=== PATIENT | female | born 1945 | race Caucasian/White ===

== ENCOUNTER 2016-10-30 20:21 | Emergency (ER) | payer MEDICARE ==
[~2016-10-30] VITALS: Ht 149.9 cm; Wt 72.0 kg
[~2016-10-30 20:21] MED LIST: ASPI81TA9 PO; DOCU-27 PO; LORA10TA68 PO; POLY17PO5 PO; RANI150C PO; SIMV40TA3 PO; URSODIOL
[2016-10-30] MEDS ORDERED: ONDANSETRON PF 4 MG/2 ML VIAL. ONE (20:36)
[2016-10-30] MEDS ORDERED: ONDANSETRON PF 4 MG/2 ML VIAL. IV ONE (21:00)
--- NOTE | 2016-10-30 21:13 | PHYS DOC ---
General Chief Complaint: ABDOMINAL PAIN Stated Complaint: POSSIBLE GALL BLADDER ATTACK Time Seen by MD: 21:07 Source: patient, other Problems: History of Present Illness Initial Comments Patient with friend, whom she says has power of farm equipment operator, for vomiting. Patient states she began having abdominal pain earlier today. She notes that some the left or quadrant of the abdomen, but says it's like gallbladder pain she had when she was admitted to the hospital several weeks ago. She says her pain started about 5:00 this evening. He is actually somewhat better now than before. She also had 2 episodes of emesis, once at home and once here. There's been no blood or bilious material noted. She's had no fever or chills with this. There is no runny nose or sore throat. There is no chest pain or shortness of breath. As noted, she says her abdominal pain is now improved. Patient does have a colostomy in place in left lower quadrant following rectal cancer about 9 years ago. She doesn't know if the output is better or worse today than normal. There's been no blood in the output. No change in bladder habits. There is no focal extremity or neurologic complaints. Patient's done nothing for this at home and notes no factors that increase or decrease her symptoms. She indicates that she was admitted to the hospital about 3 weeks ago for this pain, was told she had a bowel obstruction, but doesn't know if he did about it. She says she was told that her pain was due to a gallbladder attack. At time of physician evaluation, she is are received some antiemetics and states that she feels significant better. Patient's past [employer] as work for rectal cancer with colostomy as previously described. She has COPD as well. She is a nonsmoker and nonuser of ethanol. Allergies: Coded Allergies: diphenhydramine (Verified Allergy, Severe, fast heart rate, 09/10/15) Past Medical History Medical History: cancer, COPD Surgical History: other Social History Smoker: non-smoker Alcohol: none Review of Systems All Other Systems: Reviewed and Negative Physical Exam General Appearance: WD/WN, no apparent distress Ear, Nose, Throat: normal ENT inspection, normal pharynx Neck: full range of motion, supple, normal inspection Respiratory: lungs clear, normal breath sounds, no respiratory distress Cardiovascular: regular rate, rhythm, no edema Gastrointestinal: non tender, soft, no organomegaly, other Back: no CVA tenderness, no vertebral tenderness Extremities: non-tender, normal inspection, no pedal edema Neurologic/Psychiatric: alert, normal mood/affect, oriented x 3 Skin: normal color Lymphatic: no adenopathy Comments Generally this is a well-developed well-nourished white female in no acute distress. Vitals are as noted. She does have a strange of scant emesis in the room. Pertinent findings on physical exam shows the chest to be clear. Cardiac exam shows regular rate and rhythm without murmur. Patient has a colostomy noted in the left midabdominal region. There is no masses, organomegaly,. No findings. There is only minimal tenderness in the left lower quadrant area. Back shows no CVA tenderness. Externally show no rash cyanosis or edema. Patient awake alert and oriented. Remainder of physical exam is clinically unremarkable. Orders, Labs, Meds Old charts note a prior hospital admission in September of last year for chest pain. She was actually seen here earlier this month for abdominal pain. She has CT scan that showed evidence of cholelithiasis, also multiple abdominal wall hernias and small bowel obstruction. She was subsequently transferred to [place]. Labs today show white count of 9.6 with normal differential. Liver function tests are globally moderately elevated compared with baseline. Urinalysis is pending. Abdominal flat and upright films show no acute changes per the emergency physician. There suboptimal films. CT scan of the abdomen and pelvis shows multiple dilated loops of small bowel with likely small bowel obstruction as well as to anterior abdominal wall hernias on the left side. Transition point the obstruction appears to be a more the bowel loops extending from the inferior abdominal wall hernia. Cholelithiasis and a mildly day dilated pancreatic duct are noted which are similar to previous studies. There is also some atelectasis in the base per radiology. 0045 Patient resting more comfortably in the ED. I originally discussed the possibility early CT scanning with the patient. She stated that she couldn't do a CT scan because she was claustrophobic and would have a heart attack. I did remind her that a CT scan is certainly not an enclosed MRI, but she insists that she knew the difference and did not want to have the CT scan unless she was totally "knocked out." As a result, obtained initial abdominal films to see if I could see any obvious obstruction. These were nondiagnostic and I discussed with the patient and her friend again the need for CT scanning. At this point, she received fentanyl and Ativan, and felt like she was calm enough to undergo the scan with results as above. I discussed the results of the scan with the patient and her friend. We discussed that while she does have gallstones, I really don't think that was causing her symptoms. I really think this is related to small L obstruction related to abdominal wall hernias. Unfortunate, this is likely the patient will be able to keep here because of the possible need for surgical intervention, the last time and apparently resolved on its own. Patient and her friend are agreeable to transfer to [place] as needed. I discussed the case with Dr. Bustos of the hospitalist service who would like the patient transferred to [place] or she might receive surgical care as needed. I subs going discussed the case with Dr. Dumont of general surgery, would be happy to consult in the morning but suggest the patient be admitted to the hospitalist service. I discussed the case with Dr. Cole of the hospitalist service who graciously agrees to accept the patient for admission. She is resting comfortably at this time awaiting transfer to [place] and definitive care. SHARMILA FORRESTER MD Oct 30, 2016 21:13
[2016-10-30 21:30] LABS: BASO # 0.1 x10^3/uL (0.0-0.2); BASO % 1 % (0-3); EOS # 0.2 x10^3/uL (0.0-0.7); EOS % 2 % (0-3); HEMATOCRIT 41.8 % (36.0-47.0); HEMOGLOBIN 14.1 g/dL (12.0-15.5); LYMPH # 0.9 x10^3/uL (1.0-4.8); LYMPH % 9 % (24-48); MEAN CORPUSCULAR HEMOGLOBIN 31 pg (25-35); MEAN CORPUSCULAR HGB CONC 34 g/dL (31-37); MEAN CORPUSCULAR VOLUME 92 fL (79-100); MONO # 0.6 x10^3/uL (0.0-1.1); MONO % 6 % (0-9); NEUT # 7.9 x10^3uL (1.8-7.7); NEUT % 82 % (31-73); PLATELET COUNT 277 x10^3/uL (140-400); RED BLOOD COUNT 4.52 x10^6/uL (3.50-5.40); WHITE BLOOD COUNT 9.6 x10^3/uL (4.0-11.0)
[2016-10-30] MEDS ORDERED: IV NORMAL SALINE 1,000ML 1,000 ML IV ONE (21:30)
[2016-10-30 21:34] LABS: ALBUMIN 3.8 g/dL (3.4-5.0); ALBUMIN/GLOBULIN RATIO 0.8 (1.0-1.7); CALCIUM 10.1 mg/dL (8.5-10.1); CREATININE 0.7 mg/dL (0.6-1.0); POTASSIUM 3.6 mmol/L (3.5-5.1); TOTAL BILIRUBIN 1.3 mg/dL (0.2-1.0); TOTAL PROTEIN 8.3 g/dL (6.4-8.2)
[2016-10-30] MEDS ORDERED: FENTANYL PF 100 MCG/2 ML VIAL. IV ONE ×2 (22:15→23:30)
[2016-10-30] MEDS ORDERED: LORAZEPAM 2 MG/ML VIAL IV ONE (23:30)
--- NOTE | 2016-10-31 00:26 | RAD ---
Examination: CT of the abdomen pelvis without contrast History: History of abdominal pain, vomiting. COMPARISON 10/04/2016. TECHNIQUE Axial CT images of the abdomen pelvis were performed without contrast. Coronal sagittal reformats were performed Exposure: One or more of the following dose reduction technique were utilized for this examination: 1. Automated exposure control. 2.Adjustment of MA and /or KV according to patient size. 3. Use of iterative reconstruction technique. Findings: Patchy bibasilar lung airspace opacities likely atelectasis or infiltrates. No evidence of free air identified in the abdomen. The visualized liver, spleen, adrenals grossly appears unremarkable. Multiple gallstones identified within the gallbladder. The pancreatic duct is mildly prominent similar to prior exam. No evidence of intrarenal collecting system calculi identified in the bilateral kidneys. The stomach is mildly distended with fluid. There are multiple dilated loops of small bowel identified in the abdomen suggestive of small bowel obstruction. A dilated loop of a small bowel extends into the inferior left lower quadrant anterior abdominal wall hernia with a likely transition point for small bowel obstruction as the loop exiting from the abdominal wall hernia is nondilated suggestive of a transition point. This is similar to prior exam. In addition there appears to be another site of transition for small bowel obstruction best seen on the series 2 image 62 in the right mid abdomen. There are 2 moderate size anterior abdominal wall hernias identified on the left with the superior abdominal wall hernia ofdemonstrates a loops of large bowel without obstruction with changes of ostomy. The inferior abdominal wall hernia on the left, demonstrates loops of large bowel and dilated small bowel loops as described above. There is small umbilical hernia containing a knuckle of large bowel. There is a fat and omentum containing small and anterior abdominal wall hernia on the right. Feces and gas noted throughout the colon.Urinary bladder is moderately distended. Moderate degenerative changes identified in the visualized thoracolumbar spine with minimal anterior listhesis of L4 on L5. IMPRESSION - Multiple dilated loops of small bowel identified likely small bowel obstruction. 2 anterior abdominal wall hernias identified on the left. The superior hernia demonstrates nondilated bowel loops with a ostomy. The inferior left anterior abdominal wall hernia demonstrates several loops of large bowel and dilated loops of small bowel. There appears to be a transition point in one of the bowel loops extending from the inferior abdomen wall hernia. There appears to be another site of transition for small bowel obstruction in the right mid abdomen best visualized on series 2 image #60. - Gallstones within the gallbladder. - Mild dilated pancreatic duct similar to prior exam. - Patchy bibasilar lung airspace opacity likely atelectasis or infiltrates. Electronically signed by: Triston Carr (Oct 31, 2016 00:24:34)
[2016-10-31 01:40] VITALS: BP 146/71
--- NOTE | 2016-10-31 09:42 | RAD ---
Portable abdomen, 2 views, 10/30/2016: History: Vomiting Gas is present in large and small bowel in a nonspecific pattern. No free air is seen in the abdomen. There is no evidence of organomegaly. Multiple rim-like radiopacities projected over the right upper quadrant are compatible with gallstones. Mild scattered vascular calcifications are evident. There are mild degenerative changes in the spine. IMPRESSION: 1. No acute abdominal abnormality is detected. 2. Cholelithiasis.
== END 2016-10-31 01:50 | disposition short-term general hospital (02) ==
LOC: ER 20:21
DX: R10.32 Left lower quadrant pain (principal); R11.10 Vomiting, unspecified; K80.20 Calculus of gallbladder without cholecystitis without obstruction; J44.9 Chronic obstructive pulmonary disease, unspecified; Z93.3 Colostomy status; Z88.8 Allergy status to other drugs, medicaments and biological substances
CPT/HCPCS: 36415; 74020; 74176; 80053; 82010; 85027; 96361; 96374; 96375; 96376; 99285; J2060; J2405; J3010; J7030

== ENCOUNTER → 2020-01-20 | Outpatient (CLI) | payer MEDICARE ==
[~2020-01-20] MED LIST changes: +ASPI-889 PO; -ASPI81TA9 PO; +BUDE0.25 NEB; +DOCU-109 PO; -DOCU-27 PO; +IPRA0.2S5 NEB; +MILK175T2 PO; +MULT-245 PO; +OMEG1CAP65 PO; +OMEP20CA16 PO; +SIMV40TA18 PO; -SIMV40TA3 PO; +URSO500T3 PO
== END | disposition home or self-care (01) ==
LOC: LAB 09:45
PROVIDERS: ATTEND Registered Nurse
DX: Z11.59 Encounter for screening for other viral diseases (principal)
CPT/HCPCS: U0003-CS

== ENCOUNTER → 2020-01-24 | Day surgery (SDC) | payer MEDICARE ==
[~2020-01-24] MED LIST changes: +ASPI-612 PO; -ASPI-889 PO; +BALANCED SALT IRRIG OPHTH SOLN 15 ML BOTTLE. IRR ONE; -BUDE0.25 NEB; +CATARACT OPHTH GEL 0.5 ML SYRINGE. OS ONE; +CHONDROIT-SOD-HYALURONATE KIT. OS ONE; +EPINEPHrine AMPULE 0.5 MG in BALANCED SALT IRRIG SOLN PLUS 500 ML IO ONE; +ERYTHROMYCIN 0.5% OPHTH OINTMENT 1GM TUBE. OS ONE; +HYALURONIDASE 75UNITS in LIDOCAINE 2% PF OPHTH 10 ML SYRINGE. OS ONE; -IPRA0.2S5 NEB; +IPRATRPIUM/ALBUTEROL 0.5/2.5MG 3 ML NEBU. NEB PRN; +IV RINGERS SOLUTION,LACTATED 1,000 ML IV SCH; +KETOROLAC TROMETHAMINE 0.5% OPHTH SOLUTION BOTTLE. ONE; +KETOROLAC TROMETHAMINE 0.5% OPHTH SOLUTION BOTTLE. OS SCH; +MOXIFLOXACIN 0.5% OPHTH SOLUTION 3ML BOTTLE. OS SCH; +ONDANSETRON PF 4 MG/2 ML VIAL. IV PRN; +POVIDONE-IODINE 5% OPHTH SOLUTION 30ML BOTTLE. OS ONE; +PROPOFOL 10,000 MCG/ML (20ML) VIAL IV ONE; +TETRACAINE 0.5% OPHTH SOLUTION 4ML BOTTLE. OS ONE; +TETRACAINE 0.5% OPHTH SOLUTION 4ML BOTTLE. OU ONE; +prednisoLONE ACETATE 1% OPHTH SUSPENSION 5ML BOTTLE. ONE; +prednisoLONE ACETATE 1% OPHTH SUSPENSION 5ML BOTTLE. OS SCH
[2020-01-24] MEDS: MOXIFLOXACIN 0.5% OPHTH SOLUTION 3ML BOTTLE. OS SCH ×3 (09:48→09:56)
--- NOTE | 2020-01-24 10:43 | PDOC4 ---
Phaco IOL/Cataract/OS Date of Procedure: Jan 24, 2020 Preoperative Diagnosis: Senile Cataract, Left Eye Postoperative Diagnosis: Senile Cataract, Left Eye Anesthesia: Local (Block) with monitored anesthesia care Surgeon: Nestor Pacheco D.O. Procedure: Left Phacoemulsification with Intraocular Lens Implant Findings: Senile Cataract Indications: Worsening vision interfering with patient's lifestyle Narrative: After discussing the risks, complications and alternatives, including but not limited to loss of vision, infection, bleeding, swelling, anesthetic reaction, capsule rupture with vitreous loss, etc., the patient was given a peribulbar block under mild IV sedation and cardiac monitoring. Pressure was applied to the eye for approximately 10 minutes. The patient was transferred to the main operating room and was prepped and draped in the usual sterile fashion and positioned under the microscope. A lid speculum was placed. A temporal clear corneal incision was made with a keratome and viscoelastic was injected into the eye. A side port incision was made. A continuous tear capsulorrhexis was performed, then hydrodissection was accomplished with balanced salt solution. The phacoemulsification needle was placed in the eye and the nucleus was emulsified. The remaining cortical material was removed with the irrigation and aspiration apparatus. The capsule was polished as needed. The posterior capsule was noted to be clean and intact. Viscoelastic was injected into the eye inflating the capsular bag. An intraocular lens was injected into the eye, unfolding as desired and was positioned in the capsular bag. The viscoelastic was aspirated from the eye. The wound edges were hydrated with balanced salt solution and there were no leaks. Viscoelastic was injected over the limbal incisions. Antibiotic and steroid were placed on the eye. The lid speculum was removed, the eye patched shut and a Mills shield applied. There were no complications and the patient was taken to the PACU in good condition. NESTOR PACHECO DO Jan 24, 2020 10:43
[2020-01-24 11:00] VITALS: BP 181/68
== END | disposition home or self-care (01) ==
LOC: SURG 09:00
PROVIDERS: ATTEND Ophthalmology
DX: H25.89 Other age-related cataract (principal); K21.9 Gastro-esophageal reflux disease without esophagitis; J44.9 Chronic obstructive pulmonary disease, unspecified; E66.9 Obesity, unspecified; Z68.38 Body mass index [BMI] 38.0-38.9, adult; Z79.82 Long term (current) use of aspirin; Z79.899 Other long term (current) drug therapy
CPT/HCPCS: 66984; J0171; J2704; V2632

== ENCOUNTER → 2020-02-17 | Outpatient (CLI) | payer MEDICARE ==
[2020-01-24 11:00] VITALS: BP 181/68
[~2020-02-17] MED LIST changes: -ASPI-612 PO; +ASPI-889 PO; -BALANCED SALT IRRIG OPHTH SOLN 15 ML BOTTLE. IRR ONE; +BUDE0.25 NEB; -CATARACT OPHTH GEL 0.5 ML SYRINGE. OS ONE; -CHONDROIT-SOD-HYALURONATE KIT. OS ONE; -EPINEPHrine AMPULE 0.5 MG in BALANCED SALT IRRIG SOLN PLUS 500 ML IO ONE; -ERYTHROMYCIN 0.5% OPHTH OINTMENT 1GM TUBE. OS ONE; -HYALURONIDASE 75UNITS in LIDOCAINE 2% PF OPHTH 10 ML SYRINGE. OS ONE; +IPRA0.2S5 NEB; -IPRATRPIUM/ALBUTEROL 0.5/2.5MG 3 ML NEBU. NEB PRN; -IV RINGERS SOLUTION,LACTATED 1,000 ML IV SCH; -KETOROLAC TROMETHAMINE 0.5% OPHTH SOLUTION BOTTLE. ONE; -KETOROLAC TROMETHAMINE 0.5% OPHTH SOLUTION BOTTLE. OS SCH; -MOXIFLOXACIN 0.5% OPHTH SOLUTION 3ML BOTTLE. OS SCH; -ONDANSETRON PF 4 MG/2 ML VIAL. IV PRN; -POVIDONE-IODINE 5% OPHTH SOLUTION 30ML BOTTLE. OS ONE; -PROPOFOL 10,000 MCG/ML (20ML) VIAL IV ONE; -TETRACAINE 0.5% OPHTH SOLUTION 4ML BOTTLE. OS ONE; -TETRACAINE 0.5% OPHTH SOLUTION 4ML BOTTLE. OU ONE; -prednisoLONE ACETATE 1% OPHTH SUSPENSION 5ML BOTTLE. ONE; -prednisoLONE ACETATE 1% OPHTH SUSPENSION 5ML BOTTLE. OS SCH
== END | disposition home or self-care (01) ==
LOC: LAB 09:00
PROVIDERS: ATTEND Nurse Anesthetist, Certified Registered
DX: Z01.818 Encounter for other preprocedural examination (principal); Z11.59 Encounter for screening for other viral diseases; H26.8 Other specified cataract
CPT/HCPCS: C9803; U0003; 36415

== ENCOUNTER → 2020-02-21 | Day surgery (SDC) | payer MEDICARE ==
[~2020-02-21] MED LIST changes: +BALANCED SALT IRRIG OPHTH SOLN 15 ML BOTTLE. IRR ONE; +CATARACT OPHTH GEL 0.5 ML SYRINGE. OD ONE; +CHONDROIT-SOD-HYALURONATE KIT. OD ONE; +EPINEPHrine AMPULE 0.5 MG in BALANCED SALT IRRIG SOLN PLUS 500 ML IO ONE; +ERYTHROMYCIN 0.5% OPHTH OINTMENT 1GM TUBE. OD ONE; +HYALURONIDASE 75UNITS in LIDOCAINE 2% PF OPHTH 10 ML SYRINGE. OD ONE; +IPRATRPIUM/ALBUTEROL 0.5/2.5MG 3 ML NEBU. NEB PRN; +IV RINGERS SOLUTION,LACTATED 1,000 ML IV SCH; +KETOROLAC TROMETHAMINE 0.5% OPHTH SOLUTION BOTTLE. OD SCH; +KETOROLAC TROMETHAMINE 0.5% OPHTH SOLUTION BOTTLE. ONE; +MIDAZOLAM HCL PF 2 MG/2 ML VIAL. IV ONE; +MOXIFLOXACIN 0.5% OPHTH SOLUTION 3ML BOTTLE. OD SCH; +ONDANSETRON PF 4 MG/2 ML VIAL. IV PRN; +POVIDONE-IODINE 5% OPHTH SOLUTION 30ML BOTTLE. OD ONE; +TETRACAINE 0.5% OPHTH SOLUTION 4ML BOTTLE. OD ONE; +TETRACAINE 0.5% OPHTH SOLUTION 4ML BOTTLE. OU ONE; +prednisoLONE ACETATE 1% OPHTH SUSPENSION 5ML BOTTLE. OD SCH; +prednisoLONE ACETATE 1% OPHTH SUSPENSION 5ML BOTTLE. ONE
[2020-02-21] MEDS: MOXIFLOXACIN 0.5% OPHTH SOLUTION 3ML BOTTLE. OD SCH ×3 (10:23→10:33)
--- NOTE | 2020-02-21 11:09 | PDOC4 ---
Phaco IOL/Cataract/OD Date of Procedure: Feb 21, 2020 Preoperative Diagnosis: Preoperative Diagnosis: Senile Cataract, Right Eye Postoperative Diagnosis: Senile Cataract, Right Eye Anesthesia: Local with monitored anesthesia care Surgeon: Nestor Pacheco D.O. Procedure: Right Phacoemulsification with Intraocular Lens Implant Findings: Senile Cataract Indications: Worsening vision interfering with patient's lifestyle Narrative: After discussing the risks, complications and alternatives, including but not limited to loss of vision, infection, bleeding, swelling, anesthetic reaction, capsule rupture with vitreous loss, etc., the patient was given a peribulbar block under mild IV sedation and cardiac monitoring. Pressure was applied to the eye for approximately 10 minutes. The patient was transferred to the main operating room and was prepped and draped in the usual sterile fashion and positioned under the microscope. A lid speculum was placed. A temporal clear corneal incision was made with a keratome and viscoelastic was injected into the eye. A side port incision was made. A continuous tear capsulorrhexis was performed, then hydrodissection was accomplished with balanced salt solution. The phacoemulsification needle was placed in the eye and the nucleus was emulsified. The remaining cortical material was removed with the irrigation and aspiration apparatus. The capsule was polished as needed. The posterior capsule was noted to be clean and intact. Viscoelastic was injected into the eye inflating the capsular bag. An intraocular lens was injected into the eye, unfolding as desired and was positioned in the capsular bag. The viscoelastic was aspirated from the eye. The wound edges were hydrated with balanced salt solution and there were no leaks. Viscoelastic was injected over the limbal incisions. Antibiotic and steroid were placed on the eye. The lid speculum was removed, the eye patched shut and a Mills shield applied. There were no complications and the patient was taken to the PACU in good condition. NESTOR PACHECO DO Feb 21, 2020 11:08
[2020-02-21 11:30] VITALS: BP 158/69
== END ==
LOC: SURG 09:01
PROVIDERS: ATTEND Ophthalmology
DX: H25.12 Age-related nuclear cataract, left eye (principal); K21.9 Gastro-esophageal reflux disease without esophagitis; J44.9 Chronic obstructive pulmonary disease, unspecified; E66.9 Obesity, unspecified; Z68.30 Body mass index [BMI] 30.0-30.9, adult; Z87.891 Personal history of nicotine dependence
CPT/HCPCS: 66984; J0171; V2632

== ENCOUNTER 2020-09-06 21:46 | Emergency (ER) | payer MEDICARE ==
[~2020-09-06] VITALS: Ht 149.9 cm; Wt 72.0 kg
[~2020-09-06 21:46] MED LIST changes: -BALANCED SALT IRRIG OPHTH SOLN 15 ML BOTTLE. IRR ONE; -CATARACT OPHTH GEL 0.5 ML SYRINGE. OD ONE; -CHONDROIT-SOD-HYALURONATE KIT. OD ONE; -EPINEPHrine AMPULE 0.5 MG in BALANCED SALT IRRIG SOLN PLUS 500 ML IO ONE; -ERYTHROMYCIN 0.5% OPHTH OINTMENT 1GM TUBE. OD ONE; -HYALURONIDASE 75UNITS in LIDOCAINE 2% PF OPHTH 10 ML SYRINGE. OD ONE; -IPRATRPIUM/ALBUTEROL 0.5/2.5MG 3 ML NEBU. NEB PRN; -IV RINGERS SOLUTION,LACTATED 1,000 ML IV SCH; -KETOROLAC TROMETHAMINE 0.5% OPHTH SOLUTION BOTTLE. OD SCH; -KETOROLAC TROMETHAMINE 0.5% OPHTH SOLUTION BOTTLE. ONE; -MIDAZOLAM HCL PF 2 MG/2 ML VIAL. IV ONE; -MOXIFLOXACIN 0.5% OPHTH SOLUTION 3ML BOTTLE. OD SCH; -ONDANSETRON PF 4 MG/2 ML VIAL. IV PRN; -POVIDONE-IODINE 5% OPHTH SOLUTION 30ML BOTTLE. OD ONE; -TETRACAINE 0.5% OPHTH SOLUTION 4ML BOTTLE. OD ONE; -TETRACAINE 0.5% OPHTH SOLUTION 4ML BOTTLE. OU ONE; -prednisoLONE ACETATE 1% OPHTH SUSPENSION 5ML BOTTLE. OD SCH; -prednisoLONE ACETATE 1% OPHTH SUSPENSION 5ML BOTTLE. ONE
--- NOTE | 2020-09-06 22:20 | PHYS DOC ---
Past History Past Medical History: Anxiety, Arthritis, Cancer, COPD, Gallstones, GERD, High Cholesterol, Hepatitis, Other Past Surgical History: Cancer Surgery, Other Past Surgical History bowel resection anal cancer- 2008, post radiation and chemo., Rectosigmoidectomy and colostomy. Alcohol Use: None Drug Use: None General Adult EDM: Chief Complaint: NAUSEA/VOMITING/DIARRHEA HPI: HPI: ".. I been vomiting all day.. I tried to eat a muffin.. and some water earlier.. but I just vomited it up.. I get these bowel obstruction.. from my previous surgeries.. they usual try to just wait it out..." Patient is a 75 year old female who presents with above hx and complaints of nausea and vomiting. Patient also has some upper sternal chest pain. Patient has history of colon and rectal cancer which resulted in a recent section of colon in 2007. Has had intermittent episodes of ileus felt to be due to scarring and adhesions caused by surgery, radiation and chemotherapy. Patient does have stool in her colostomy bag. Patient denies any intake of bad food. No recent travel. No significant ill contacts. No current fever or chills. Patient advises because of her past surgery she has been told she is not a candidate for further surgery if her periodic ileus can resolve with watchful waiting, NG placement and hydration. Patient has history of chronic obstructive pulmonary disease, hyperlipidemia, rectal cancer, GERD, hepatitis B, gallstones, anxiety, DJD, hx interment GI bowel obstruction/ileus. Patient no longer smokes or uses alcohol. Does have a significant past tobacco use history excessive 2 packs a day for 45 years. She is retired from the [employer]. The patient follows with Dr. Shea as primary. Review of Systems: Review of Systems: Constitutional: Denies fever or chills Eyes: Denies change in visual acuity HENT: Denies nasal congestion or sore throat Respiratory: Denies cough or shortness of breath Cardiovascular: Complains of chest pain GI: Complains of of generalized abdominal pain, nausea, vomiting,. Denies bloo dy stools or diarrhea : Denies dysuria Musculoskeletal: Denies back pain or joint pain Integument: Denies rash Neurologic: Denies headache, focal weakness or sensory changes Endocrine: Denies polyuria or polydipsia Lymphatic: Denies swollen glands Psychiatric: Denies depression or anxiety Family History: Family History: She has 1 younger brother who is healthy. Father age 65 from heart failure and end-stage renal. Mother at age 95 because of stroke. Current Medications: Current Meds: See nursing for home meds Allergies: Allergies: Allergies Coded Allergies Type Severity Reaction Last Updated Verified diphenhydramine Allergy Severe fast heart rate 01/24/20 Yes Physical Exam: PE: Constitutional: in acute distress, non-toxic appearance. [] HENT: Normocephalic, atraumatic, bilateral external ears normal, oropharynx dry, no oral exudates, nose normal. [] Eyes: PERRLA, EOMI, conjunctiva normal, no discharge. [] Neck: Normal range of motion, no tenderness, supple, no stridor. [] Cardiovascular: Tachycardia heart rate regular rhythm, no murmur PMI to the left Lungs & Thorax: Bilateral breath sounds equal apex with scattered wheezes on auscultation [] Abdomen: Bowel sounds hyperactive, soft, generalized tenderness, no masses, no pulsatile masses. Old surgical scars. Colostomy has stool in it with no obvious bleeding. Having episodes of dry heaving. The vomitus appears to be g astric material with no obvious blood in it. Skin: Warm, dry, no erythema, no rash. Poor turgor Back: No tenderness, no CVA tenderness. [] Extremities: No tenderness, no cyanosis, no clubbing, ROM intact, no edema. Arthritic changes. No psoas sign. Neurologic: Alert and oriented X 3, moves all extremities on request, has distal sensory,, no focal deficits noted. [] Psychologic: Affect anxious, judgement normal, mood normal. [] Current Patient Data: Vital Signs: Vital Signs Date Time Temp Pulse Resp B/P (MAP) Pulse Ox O2 Delivery O2 Flow Rate FiO2 09/06/20 21:49 98.4 85 16 204/105 (138) 97 Room Air EKG: EKG: My interpretation EKG shows a sinus rhythm at 99 bpm. No acute morphology [] Radiology/Procedures: Radiology/Procedures: [][address] [address] IMAGING REPORT Signed PATIENT: MIMI ROGERS BACCOUNT: [id number] : 1945 LOCATION: ER AGE: 75 SEX: F EXAM STATUS: PRE ER ORD. PHYSICIAN: TERRANCE ZAMARRIPA MD REASON: Abd pain, nausea. Hx: Bowel resection, anal cancer, colostomy PROCEDURE: ACUTE ABDOMEN SERIES INDICATION: Reason: Abd pain, nausea. Hx: Bowel resection, anal cancer, colostomy / Spl. Instructions: / History: COMPARISON: October 2016 IMPRESSION: 3 views of the chest and abdomen obtained. Degenerative changes of the spine. Calcific atherosclerosis. No definite focal airspace consolidation or pulmonary edema. Calcifications right upper quadrant the abdomen could be from gallstones. Degenerative changes of the hips. Air scattered throughout large and small bowel in a nonspecific but not grossly obstructive pattern. Electronically signed by: Elaine Torres MD (09/06/2020 11:32 PM) [id number] DICTATED AND SIGNED BY: ELAINE TORRES MD DATE: 09/06/202329 CC: TERRANCE ZAMARRIPA MD; DOMINIQUE SHEA MD ~MTH0 0 Heart Score: HEART Score for Chest Pain: HEART Score for Chest Pain Response (Comments) Value History Slighlty/Non-Suspicious 0 ECG Normal 0 Age > 65 2 Risk Factors 1 or 2 Risk Factors 1 Troponin < Normal Limit 0 Total 3 Risk Factors: Risk Factors: DM, Current or recent (<one month) smoker, HTN, HLP, family history of CAD, obesity. Risk Scores: Score 0 - 3: 2.5% MACE over next 6 weeks - Discharge Home Score 4 - 6: 20.3% MACE over next 6 weeks - Admit for Clinical Observation Score 7 - 10: 72.7% MACE over next 6 weeks - Early Invasive Strategies Course & Med Decision Making: Course & Med Decision Making Pertinent Labs and Imaging studies reviewed. (See chart for details) During ED stay patient received IV fluids, Zofran and Pepcid. During the visit her abdomen pain resolved as well as vomiting. Chest pain resolved. Patient then requested she be discharged home. Discussed risk and benefits. Reviewed her labs. Patient advised she would return if her intractable nausea and vomit ing resumed. Patient follow-up with her primary care. Currently her labs are relatively stable. Mild leukocytosis 12.6 and sodium of 131 with a glucose of 156. Trop. normal 0.017. Pt. exhibit UCAR capacity. Impression: 1. Abdomen pain 2. Nausea vomiting 3. Ileus 4. Mild dehydration 5. Sodium 131 6. Diabetes glucose 156 7. Mild leukocytosis 12.6 [] Dragon Disclaimer: Dragon Disclaimer: This electronic medical record was generated, in whole or in part, using a voice recognition dictation system. Departure Departure: Referrals: DOIMNIQUE SHEA MD (PCP) Scripts Ondansetron Hcl (ZOFRAN) 4 Mg Tablet 8 MG PO QIDPRN PRN for NAUSEA/VOMITING, #30 TAB Prov: TERRANCE ZAMARRIPA MD 09/07/20 TERRANCE ZAMARRIPA MD Sep 06, 2020 22:20
[2020-09-06] MEDS ORDERED: FAMOTIDINE 20 MG/2 ML VIAL IVP ONE (22:30)
[2020-09-06] MEDS ORDERED: ONDANSETRON PF 4 MG/2 ML VIAL. IVP ONE (22:30)
[2020-09-06] MEDS ORDERED: IV RINGERS SOLUTION,LACTATED 1,000 ML IV SCH (22:30)
[2020-09-06] MEDS ORDERED: FAMOTIDINE 20 MG/2 ML VIAL ONE (22:34)
[2020-09-06] MEDS ORDERED: ONDANSETRON PF 4 MG/2 ML VIAL. ONE (22:34)
--- NOTE | 2020-09-06 22:55 | EKG ---
[address] [address] Test Date: 2020-09-06 Test Time: 22:48:58 Pat Name: MIMI ROGERS Department: Room: Gender: F Card Fixer: : 1945 Requested By: TERRANCE ZAMARRIPA Order Number: [id number] Reading MD: Petr Chowdhury Measurements Intervals [place] Rate: 99 P: 50 [place]: 160 QRS: 59 QRSD: 96 T: 49 QT: 360 QTc: 462 Interpretive Statements SINUS RHYTHM NORMAL ECG Electronically Signed On 09-11-2020 9:59:07 [employer] INTERN by Petr Chowdhury
[2020-09-06 22:56] LABS: BASO % 0 % (0-3); EOS % 0 % (0-3); HEMATOCRIT 44.9 % (36.0-47.0); HEMOGLOBIN 14.9 g/dL (12.0-15.5); LYMPH # 0.9 x10^3/uL (1.0-4.8); LYMPH % 7 % (24-48); MEAN CORPUSCULAR HEMOGLOBIN 31 pg (25-35); MEAN CORPUSCULAR HGB CONC 33 g/dL (31-37); MEAN CORPUSCULAR VOLUME 94 fL (79-100); MONO # 0.6 x10^3/uL (0.0-1.1); MONO % 5 % (0-9); NEUT # 11.1 x10^3uL (1.8-7.7); NEUT % 88 % (31-73); PLATELET COUNT 258 x10^3/uL (140-400); RED BLOOD COUNT 4.81 x10^6/uL (3.50-5.40); RED CELL DISTRIBUTION WIDTH 13.4 % (11.5-14.5); WHITE BLOOD COUNT 12.6 x10^3/uL (4.0-11.0)
[2020-09-06 23:21] LABS: CALCIUM 9.6 mg/dL (8.5-10.1); CREATININE 0.7 mg/dL (0.6-1.0); GFR 81.1
[2020-09-06 23:27] LABS: ALBUMIN 3.9 g/dL (3.4-5.0); DIRECT BILIRUBIN 0.2 mg/dL (0.0-0.2); TOTAL BILIRUBIN 1.1 mg/dL (0.2-1.0); TOTAL PROTEIN 8.2 g/dL (6.4-8.2)
[2020-09-06 23:28] LABS: POTASSIUM 3.8 mmol/L (3.5-5.1)
--- NOTE | 2020-09-06 23:34 | RAD ---
INDICATION: Reason: Abd pain, nausea. Hx: Bowel resection, anal cancer, colostomy / Spl. Instructions : / History: COMPARISON: October 2016 IMPRESSION: 3 views of the chest and abdomen obtained. Degenerative changes of the spine. Calcific atherosclerosi s. No definite focal airspace consolidation or pulmonary edema. Calcifications right upper quadrant t he abdomen could be from gallstones. Degenerative changes of the hips. Air scattered throughout large and small bowel in a nonspecific but not grossly obstructive pattern. Electronically signed by: Andrea Marie MD (09/06/2020 11:32 PM) [id number]
[2020-09-07 02:17] LABS: BILIRUBIN,URINE NEG (NEG); CLARITY,URINE CLEAR; COLOR,URINE YELLOW; GLUCOSE,URINE NEG (NEG); NITRITE,URINE NEG (NEG); UROBILINOGEN,URINE 0.2 mg/dL (0.2 mg/dL)
[2020-09-07 02:18] LABS: BACTERIA,URINE FEW /HPF (0-FEW); SQUAMOUS EPITHELIAL CELL,UR OCC /LPF
[2020-09-07 02:21] LABS: BARBITURATES NEG (NEG); BENZODIAZEPINES NEG (NEG); CANNABINOIDS NEG (NEG); COCAINE NEG (NEG); METHADONE NEG (NEG); OPIATES NEG (NEG); PHENCYCLIDINE NEG (NEG)
[2020-09-07 02:38] LABS: AMPHETAMINE/METHAMPHETAMINE NEG (NEG)
[2020-09-07] MEDS ORDERED: ONDA4TAB7 PO (03:08)
[2020-09-07] MEDS ORDERED: IV RINGERS SOLUTION,LACTATED 1,000 ML IV ONE (03:15)
[2020-09-07 03:45] VITALS: BP 102/81
== END 2020-09-07 03:45 | disposition home or self-care (01) ==
LOC: ER 21:46
DX: E86.0 Dehydration (principal); K56.7 Ileus, unspecified; E11.9 Type 2 diabetes mellitus without complications; D72.829 Elevated white blood cell count, unspecified; R07.2 Precordial pain; M19.90 Unspecified osteoarthritis, unspecified site; J44.9 Chronic obstructive pulmonary disease, unspecified; K21.9 Gastro-esophageal reflux disease without esophagitis; E78.00 Pure hypercholesterolemia, unspecified; Z88.8 Allergy status to other drugs, medicaments and biological substances; Z79.899 Other long term (current) drug therapy
CPT/HCPCS: 36415; 74022; 80048; 80076; 80307; 81001; 82150; 82550; 83690; 84484; 85025; 85610; 85730; 87086; 93005; 96361; 96374; 96375; 99285; J2405; J3490; J7120

== ENCOUNTER → 2021-04-11 | Outpatient (CLI) | payer MEDICARE ==
[~2021-04-11] MED LIST changes: +ONDA4TAB7 PO
--- NOTE | 2021-04-11 10:08 | RAD ---
CLINICAL HISTORY: ABDOMINAL AORTIC ECTASIA follow-up examination COMPARISON: CT dated 10/30/2016. TECHNIQUE: The abdominal aorta was examined from the diaphragm to the proximal common iliac arteries. FINDINGS: There is a diffuse atherosclerotic plaques throughout the abdominal aorta. The proximal abdominal aorta measures 2.1 x 2.1 cm. PSV: 62 cm/second. The mid abdominal aorta measures 1.7 x 2.2 cm. PSV: 92 cm/second. The distal abdominal aorta measures 2.0 x 1.7 cm. PSV: 88 cm/second. Evaluation of the common iliac arteries is limited due to ostomy bag. The right common iliac artery measures 1.0 x 0.8 cm in diameter. PSV: 98 cm/second. The left common iliac artery measures 0.9 x 0.9 cm in diameter. PSV: 98 cm/second IMPRESSION: Focal infrarenal abdominal aortic ectasia measures up to 2.2 cm, essentially unchanged since October 20. Electronically signed by: Kayla Peguero MD (04/11/2021 10:06 AM) [id number]
== END ==
LOC: US 07:48
PROVIDERS: ATTEND Specialist
DX: I77.811 Abdominal aortic ectasia (principal); I70.0 Atherosclerosis of aorta
CPT/HCPCS: 76770

== ENCOUNTER → 2021-06-20 | Outpatient (CLI) | payer MEDICARE ==
--- NOTE | 2021-06-20 11:44 | RAD ---
EXAM: DUAL ENERGY X-RAY ABSORPTIOMETRY (DEXA). HISTORY: Postmenopausal screening. FINDINGS: The lowest measured T-score is -1.7 in the lumbar spine, based on a bone mineral density of 1.061 g/cm^2. Refer to the worksheets for full detail. No comparison examinations are available. IMPRESSION: 1. Normal. Bone mineral density yields a T-score of -1.0 or greater. Fracture risk is low. 2. FRAX report: Not calculated. METHODOLOGY: Dual energy x-ray absorptiometry was performed to measure bone mineral density. The foll owing analysis is based on the 2019 Official Positions of the International Society for Clinical Dens itometry: Measurements of the hips and the average of L1-L4 are preferred. When the spine and/or hip cannot be feasibly measured or interpreted, or in the setting of hyperparathyroidism, distal radial bone minera l density may be measured. The lumbar spine T-score is based on the average bone mineral density of L1-L4. In the setting of art ifact or anatomic abnormality, some lumbar levels may be excluded, and the remaining levels used for calculation. A single lumbar level is not used for diagnosis, and if only a single level is available for assessment, another anatomic site will be used to assign a diagnosis. The hip T-score is based on the bone mineral density measurement of the femoral neck or total proxima l femur of either side, whichever is lowest. Bilateral mean values are not used for diagnosis. The forearm T-score is derived from 33% of the distal radius of the nondominant forearm. Electronically signed by: Tosin Whitlock MD (06/20/2021 11:42 AM) [id number]
--- NOTE | 2021-06-20 11:47 | RAD ---
EXAM: Chest CT without intravenous contrast. HISTORY: Nicotine dependence. TECHNIQUE: Computed tomographic images of the chest were obtained without contrast. Multiplanar refor matting was performed. *One or more of the following individualized dose reduction techniques were utilized for this examina tion: 1. Automated exposure control. 2. Adjustment of the mA and/or kV according to patient size. 3. Use of iterative reconstruction technique. COMPARISON: None. FINDINGS: The heart is normal in size. There is trace anterior pericardial fluid. There is calcificat ion of the mitral valve annulus. There is calcified atherosclerotic plaque involving the aorta, aorti c arch great vessels and coronary arteries. No pathologically enlarged lymph node is seen. There is no pneumothorax or pleural effusion. There is no infiltrate. There is a right greater than l eft basilar atelectasis. There is no suspicious pulmonary nodule. There is no acute finding involving the upper abdomen. There is no acute or suspicious osseous finding. There are degenerative changes t hroughout the spine. There are few benign osseous hemangiomas. IMPRESSION: No acute thoracic finding or suspicious pulmonary nodule. Lung RADS Category 1. Electronically signed by: Tosin Whitlock MD (06/20/2021 11:45 AM) [id number]
== END ==
LOC: CT 10:53
PROVIDERS: ATTEND Specialist
DX: Z12.11 Encounter for screening for malignant neoplasm of colon (principal); I70.0 Atherosclerosis of aorta; I25.10 Atherosclerotic heart disease of native coronary artery without angina pectoris; M47.814 Spondylosis without myelopathy or radiculopathy, thoracic region; D18.09 Hemangioma of other sites; M85.80 Other specified disorders of bone density and structure, unspecified site; Z85.038 Personal history of other malignant neoplasm of large intestine; Z78.0 Asymptomatic menopausal state; Z87.891 Personal history of nicotine dependence
CPT/HCPCS: 71250; 77080